=== PATIENT | female | born 1970 | race Hispanic/Latino ===

== ENCOUNTER 2021-12-02 11:54 | Emergency (ER) | payer OTHER ==
--- OUTSIDE RECORDS SUMMARY | 2021-12-02 11:59 | XMS REPORT | Continuity of Care Document ---
:1970 Author Organization [facility] t Address [address] [place] [address] Care Team Providers Name Role Phone LIAM Attending Clinician Unavailable Bill Stark Attending Clinician [phone] Rebecca Attending Clinician [phone] Vitor Attending Clinician [phone] Wilda Roland Attending Clinician [phone] DR Bouchra STEVEN Attending Clinician Unavailable DR MIKHAIL Attending Clinician Unavailable DR Jose HWANG Attending Clinician Unavailable LIAM Admitting Clinician Unavailable PARISA RUIZIOMA Admitting Clinician Unavailable DR MIKHAIL Admitting Clinician Unavailable DR Jose HWANG Admitting Clinician Unavailable Payers Payer Name Policy Type Policy Number Effective Date Expiration Date S [facility] [id number] Problems This patient has no known problems. Allergies, Adverse Reactions, Alerts Allergy Allergy Status Severity Reaction(s) Onset Inactive Treating Comm ents Source Name Type Date Date Clinician No Known DA Active [facility] Medications This patient has no known medications. Vital Signs Vital Name Observation Time Observation Value Comments Source Height 2020-10-03 21:45:00 165.1 CM Weight 2020-10-03 21:45:00 117.93 KG Height 2020-10-03 05:58:00 165.1 CM Weight 2020-10-03 05:58:00 117.93 KG Height 2020-07-17 13:15:00 165.1 CM Weight 2020-07-17 13:15:00 122.46 KG Procedures This patient has no known procedures. Encounters Start End Encounter Admission Attending Care Care Encounter Source Date/Time Date/Time Type Type Clinicians Facility Department ID 2021-11-13 2021-11-13 Outpatient LIAM [facility] [id number] [place] 05:33:00 05:33:00 [facility] 2021-11-13 2021-11-13 Outpatient Lincoln, [facility] [id number] 00:00:00 00:00:00 Suhail [id number] 2021-11-04 2021-11-04 Outpatient WATERS_S [facility] 2021 [place] 10:33:00 10:33:00 0425 [facility] 2021-11-04 2021-11-04 Outpatient WATERS_S [facility] 2021 [place] 10:33:00 10:33:00 0502 [facility] 2021-11-04 2021-11-04 Outpatient Rebecca, [facility] [id number] 00:00:00 00:00:00 Rose Marie [id number] 2021-10-08 2021-10-08 Outpatient WATERS_S [facility] 2021 [place] 12:23:00 12:23:00 0329 [facility] 2021-10-08 2021-10-08 Outpatient Adler, [facility] [id number] 00:00:00 00:00:00 Sadia [id number] 2021-10-07 2021-10-07 Outpatient WATERS_S [facility] 2021 [place] 06:48:00 06:48:00 0328 [facility] 2021-10-01 2021-10-01 Outpatient WATERS_S [facility] 2021 [place] 03:02:00 03:02:00 0322 [facility] 2021-09-12 2021-09-12 Outpatient WATERS_S [facility] 2021 [place] 03:49:00 03:49:00 0303 [facility] 2021-09-12 2021-09-12 Outpatient Adler, [facility] [id number] 00:00:00 00:00:00 Sadia [id number] 2021-08-27 2021-08-27 Outpatient WATERS_S [facility] 2021 [place] 03:35:00 03:35:00 0215 [facility] 2021-08-27 2021-08-27 Outpatient Adler, [facility] [id number] 00:00:00 00:00:00 Sadia [id number] 2021-08-19 2021-08-19 Outpatient W[facility]ERS_S [facility] 2021 [place] 10:23:00 10:23:00 0210 [facility] 2021-08-16 2021-08-16 Outpatient WATERS_S [facility] 2021 [place] 04:31:00 04:31:00 0204 [facility] 2021-08-07 2021-08-07 Outpatient WATERS_S [facility] 2021 [place] 12:25:00 12:25:00 0126 [facility] 2021-08-07 2021-08-07 Outpatient Adler, [facility] [id number] 00:00:00 00:00:00 Sadia [id number] 2021-07-22 2021-07-22 Outpatient WATERS_S [facility] 2021 [place] 10:38:00 10:38:00 0110 [facility] 2021-07-22 2021-07-22 Outpatient Adler, [facility] [id number] 00:00:00 00:00:00 Sadia [id number] 2021-07-18 2021-07-18 Outpatient [facility]ERS[facility] [id number] [place] 06:00:00 06:00:00 0106 [facility] 2021-07-18 2021-07-18 Outpatient Adler, [facility] [id number] 00:00:00 00:00:00 Sadia [id number] 2021-06-18 2021-06-18 Outpatient WATERS_S [facility] 2020 [place] 04:20:00 04:20:00 1207 [facility] 2021-06-18 2021-06-18 Outpatient Adler, [facility] [id number] 00:00:00 00:00:00 Sadia [id number] 2021-06-12 2021-06-12 Outpatient [facility]ERS_[facility] 2020 [place] 10:52:00 10:52:00 1201 [facility] 2021-05-14 2021-05-14 Outpatient WATERS_S [facility] 2020 [place] 12:27:00 12:27:00 1102 [facility] 2021-05-14 2021-05-14 Outpatient Adler, [facility] [id number] e-[id number] 00:00:00 00:00:00 Sadia [id number] 2021-05-14 2021-05-14 Outpatient Adler, [facility] [id number] 00:00:00 00:00:00 Sadia [id number] 2021-04-09 2021-04-09 Outpatient WATERS_S [facility] 2020 [place] 05:46:00 05:46:00 0928 [facility] 2021-04-09 2021-04-09 Outpatient Adler, [facility] [id number] 00:00:00 00:00:00 Sadia [id number] 2021-04-07 2021-04-07 Outpatient [facility]ERS_[facility] 2020 [place] 12:40:00 12:40:00 0926 [facility] 2021-04-07 2021-04-07 Outpatient WATERS_S [facility] 2020 [place] 12:40:00 12:40:00 0927 [facility] 2021-03-31 2021-03-31 Outpatient [facility]ERS_S [facility] 2020 [place] 06:35:00 06:35:00 0923 [facility] 2021-03-03 2021-03-03 Outpatient W[facility]ERS_S [facility] 2020 [place] 12:36:00 12:36:00 0822 [facility] 2021-02-12 2021-02-12 Outpatient WATERS_S [facility] 2020 [place] 10:40:00 10:40:00 0803 [facility] 2021-02-12 2021-02-12 Outpatient Schaubroeck [facility] [id number] 00:00:00 00:00:00 , Marcelina [id number] Wilda [id number] 2021-01-27 2021-01-27 Outpatient WATERS_S [facility] 2020 [place] 12:44:00 12:44:00 0718 [facility] 2021-01-18 2021-01-18 Outpatient WATERS_S [facility] 2020 [place] 10:11:00 10:11:00 0709 [facility] 2021-01-18 2021-01-18 Outpatient Vitor, [facility] [id number] 00:00:00 00:00:00 Sadia [id number] 2021-01-18 2021-01-18 Outpatient Adler, [facility] [id number] 00:00:00 00:00:00 Sadia [id number] 2021-01-17 2021-01-17 Outpatient [facility]ERS_[facility] 2020 [place] 10:54:00 10:54:00 0708 [facility] 2021-01-16 2021-01-16 Outpatient WATERS_S [facility] 2020 [place] 11:14:00 11:14:00 0707 [facility] 2021-01-16 2021-01-16 Outpatient Adler, [facility] [id number] 00:00:00 00:00:00 Sadia [id number] 2021-01-16 2021-01-16 Outpatient Adler, [facility] [id number] 00:00:00 00:00:00 Sadia [id number] 2021-01-16 2021-01-16 Outpatient Adler, [facility] [id number] 00:00:00 00:00:00 Sadia [id number] 2020-12-14 2020-12-14 Outpatient WATERS_S [facility] [id number] [place] 11:31:00 11:31:00 0604 [facility] 2020-12-14 2020-12-14 Outpatient Adler, [facility] [id number] 00:00:00 00:00:00 Sadia [id number] 2020-12-14 2020-12-14 Outpatient Adler, [facility] [id number] 00:00:00 00:00:00 Sadia [id number] 2020-11-26 2020-11-26 Outpatient WATERS_S [facility] [id number] [place] 02:17:00 02:17:00 0517 [facility] 2020-11-26 2020-11-26 Outpatient Adler, [facility] [id number] 00:00:00 00:00:00 Sadia [id number] 2020-10-03 2020-10-05 Outpatient E STEVEN, [facility] [id number] 23:39:00 15:42:00 POYANI [facility] 2020-10-03 2020-10-03 Emergency E ELIZONDO, [facility] [id number] 05:41:00 09:41:00 [facility] 2020-07-17 2020-07-17 Patti HWANG [facility] [id number] [facility] 12:30:00 16:55:00 [facility] Results Test Description Test Time Test Comments Results Result Comments Source BLOOD CULTURE 2020-10-08 22:33:00 Test Item Value Reference Range Interpretation Comme nts Culture Observations (test code = COB1) NO GROWTH AFTER 5 DAYS BLOOD [id number] 22:33:00 Test Item Value Reference Range Interpretation Comments Culture Observations (test NO GROWTH AFTER 5 code = COB1) DAYS URINE [id number] 09:00:00 Test Item Value Reference Range Interpretation Comments Isolate 1 (test code = ISO1) Escherichia coli A ampicillin (test code = am) ug/mL R piperacillin/tazobactam ug/mL S (test code = tzp) cefazolin (test code = cz) ug/mL S ceftazidime (test code = ug/mL S monica) ceftriaxone1 (test code = ug/mL S ctr) cefepime (test code = fep) ug/mL S aztreonam (test code = azm) ug/mL S ertapenem (test code = etp) ug/mL S meropenem (test code = mem) ug/mL S gentamicin (test code = gm) ug/mL S tobramycin (test code = tob) ug/mL S levofloxacin (test code = ug/mL S lev) nitrofurantoin (test code = ug/mL S ftn) trimethoprim/sulfamethoxazol ug/mL R e (test code = sxt) CBC WITH MANUAL DIFF *WW*2020-10-05 07:50:00 Test Item Value Reference Range Interpretation Comments WBC (test code = 3.7 10\S\3/uL 4.5-11.0 L WBC) RBC (test code = 3.91 10\S\6/uL 4.20-5.60 L RBC) HGB (test code = 12.8 g/dL 12.0-15.5 HBG) HCT (test code = 38.2 % 35.0-44.0 HCT) MCV (test code = 97.7 fL 81.0-99.0 MCV) MCH (test code = 32.7 pg 27.0-31.0 H MCH) MCHC (test code = 33.5 g/dL 32.0-36.0 MCHC) RDW (test code = 13.4 % 11.5-14.5 RDW) PLT (test code = 121 10\S\3/uL 130-400 L PLT) MPV (test code = 12.1 fL 9.4-12.4 MPV) NEUTROP # (test 2.8 10\S\3/uL 1.6-8.0 code = NE#) LYMPH # (test 0.3 10\S\3/uL 1.1-3.5 L code = LY#) MONOCYTE # (test 0.5 10\S\3/uL 0.0-1.1 code = MO#) EOSINOPH # (test 0.0 10\S\3/uL 0.0-0.7 code = EO#) BASOPHIL # (test 0.0 10\S\3/uL 0.0-0.3 code = BA#) IG # (test code = 0.04 10\S\3/uL 0.00-0.06 IG#) NRBC # (test code 0.00 10\S\3/uL 0.00-0.01 = NRBC#) NEUTROPH % (test 75.4 % 35.0-73.0 H code = NE%) LYMPH % (test 9.3 % 20.0-55.0 L code = LY%) MONO % (test code 13.1 % 2.5-10.0 H = MO%) EOSINOPH % (test 0.3 % 0.0-5.0 code = EO%) BASOPHIL % (test 0.8 % 0.0-2.0 code = BA%) IG % (test code = 1.1 % 0.0-0.8 H IG%) NRBC% (test code 0.0 % 0.0-0.2 = NRBC%) MAN DIFF (test MANUAL code = HMDIFF) DIFFERENTIAL SEG (test code = 77 % 42-75 H SEG) BAND (test code = 2 % 0-8 BAND) LYMPH (test code 11 % 20-51 L = LYMPH) ATYP LYMP (test 1 % See_Comment [Automated code = ATYL) message] The sy stem which generated this result transmitted reference range : <=5. The refere nce range was not u sed to interpret th is result as normal/abnormal . MONO (test code = 7 % 3-11 MONO) EOS (test code = 0 % 0-10 EOS) BASO (test code = 0 % 0-2 BASO) RBC MORPH (test NORMAL NORMAL code = RBCMORN) PLT EST (test DECREASED ADEQUATE A code = PLTEST) PLT MORPH (test NORMAL (1.5-3 um) NORMAL code = PLTMOR) META (test code = 2 % See_Comment H Previously reported META) as: 2 On 10/05/2020 07:5 0 By [email or web address] [Autom ated message] The sy stem which generated this result transmitted reference range : <=1. The refere nce range was not u sed to interpret th is result as normal/abnormal . T3 FREE 2020-10-05 07:26:00 Test Item Value Reference Range Interpretation Comments T3 FREE (test code 1.3 pg/mL 2.3-4.2 L TEST PERF ORMED AT:QUEST = [id number]) [facility] [id number] [place] [id number] STACY MD BASIC METABOLIC PANEL 2020-10-05 06:39:00 Test Item Value Reference Range Interpretation Comments GLUCOSE (test code 100 mg/dL 75-100 = 06D) SODIUM (test code 136 mmol/L 136-145 = 01A) POTASSIUM (test 3.2 mmol/L 3.6-5.1 L code = 01B) CHLORIDE (test 105 mmol/L 98-107 code = 04A) CO2 (test code = 24 mmol/L 22-32 02A) ANION GAP (test 10.2 mmol/L code = ANG) BUN (test code = 10 mg/dL 7-18 05D) CREATININE (test 0.9 mg/dL 0.4-1.1 code = 03E) GFR (test code = 79 See_Comment L [Automated GFR) mL/min/1.73m\S\2 message] Th e system which generated this result transmit satish reference range : >=90. The reference range was not used to interpret this result as normal/abnormal . GFR 91 See_Comment [Automated SWAZI (test mL/min/1.73m\S\2 message] The code = GFRAA) system which generated this result transmit satish reference range : >=90. The reference range was not used to interpret this result as normal/abnormal . EGFR (test code = eGFR BY EGFR) CKD-EPI CALCULATION IS NOT RECOMMENDED FOR PATIENTS UNDER 18 YEARS OF AGE. BUN/CREA (test 07-01 code = BCR) CALCIUM (test code 8.6 mg/dL 8.3-9.5 = 09D) T4 FREE *WW*2020-10-04 17:57:00 Test Item Value Reference Range Interpretation Comments T4 FREE (test code = A91) 1.30 ng/dL 0.76-1.46 THYROID PANEL/SCREEN (TSH) *WW*2020-10-04 17:48:00 Test Item Value Reference Range Interpretation Comments TSH (test code = WTSH) 12.600 uIU/mL 0.358-3.740 H SARS-CoV-2 (MOLECULAR)2020-10-03 23:53:00 Test Item Value Reference Range Interpretation Comments SARS-CoV-2 MOLECULAR NEGATIVE NEGATIVE (test code = WCOV) COVID AG (test code This test has been = COVAGC) marketed under the FDA Emergency Use Authorization (EUA) to meet challenges of the COVID-19 pandemic. The validation standards normally enforced by the FDA and the [employer] (CAP) are more stringent than those required for this test. Therefore, the result should be interpreted with caution and close attention to other clinical and epidemiological data CBC WITH [id number] 23:20:00 Test Item Value Reference Range Interpretation Comments WBC (test code = WBC) 4.7 10\S\3/uL 4.5-11.0 RBC (test code = RBC) 4.15 10\S\6/uL 4.20-5.60 L HGB (test code = HBG) 13.8 g/dL 12.0-15.5 HCT (test code = HCT) 40.8 % 35.0-44.0 MCV (test code = MCV) 98.3 fL 81.0-99.0 MCH (test code = MCH) 33.3 pg 27.0-31.0 H MCHC (test code = MCHC) 33.8 g/dL 32.0-36.0 RDW (test code = RDW) 13.2 % 11.5-14.5 PLT (test code = PLT) 150 10\S\3/uL 130-400 MPV (test code = MPV) 11.8 fL 9.4-12.4 NEUTROP # (test code = NE#) 4.0 10\S\3/uL 1.6-8.0 LYMPH # (test code = LY#) 0.3 10\S\3/uL 1.1-3.5 L MONOCYTE # (test code = 0.3 10\S\3/uL 0.0-1.1 MO#) EOSINOPH # (test code = 0.0 10\S\3/uL 0.0-0.7 EO#) BASOPHIL # (test code = 0.0 10\S\3/uL 0.0-0.3 BA#) IG # (test code = IG#) 0.08 10\S\3/uL 0.00-0.06 H NRBC # (test code = NRBC#) 0.00 10\S\3/uL 0.00-0.01 NEUTROPH % (test code = 85.4 % 35.0-73.0 H NE%) LYMPH % (test code = LY%) 6.9 % 20.0-55.0 L MONO % (test code = MO%) 5.6 % 2.5-10.0 EOSINOPH % (test code = 0.0 % 0.0-5.0 EO%) BASOPHIL % (test code = 0.4 % 0.0-2.0 BA%) IG % (test code = IG%) 1.7 % 0.0-0.8 H NRBC% (test code = NRBC%) 0.0 % 0.0-0.2 PLT EST (test code = ADEQUATE ADEQUATE PLTEST) PLT MORPH (test code = NORMAL (1.5-3 um) NORMAL PLTMOR) LACTIC [id number] 23:00:00 Test Item Value Reference Range Interpretation Comments LACTIC ACD (test code = LA) 1.5 mmol/L 0.4-2.0 URINALYSIS WITH [id number] 22:53:00 Test Item Value Reference Range Interpretation Comments COLOR (test code = COLU) YELLOW YELLOW CLARITY (test code = CLA) CLEAR CLEAR GLUCOSE UR (test code = UA GLUCOSE) NEGATIVE NEGATIVE BILI UR (test code = BILE) NEGATIVE NEGATIVE KETONES UR (test code = RACHID) NEGATIVE NEGATIVE SP GRAVITY (test code = SPGR) 1.012 1.005-1.030 PH UR (test code = PH) 6.5 4.5-8.0 PROTEIN UR (test code = PU) 1+ NEGATIVE A UROBIL UR (test code = UROQ) 1.0 EU/dL 0.2-1.0 NITRITE UR (test code = NITRITE) NEGATIVE NEGATIVE BLOOD UR (test code = UA BLOOD) TRACE NEGATIVE A LEUK ES UR (test code = LEUK) TRACE NEGATIVE A WBC UR (test code = UWBC) 4 /HPF 0-5 RBC UR (test code = URBC) 3 /HPF 0-2 H EPITH UR (test code = UEPC) FEW /LPF FEW BACTERIA UR (test code = UBACT) FEW /HPF NONE A CAST UR (test code = CAST) /LPF NONE CRYSTAL UR (test code = CRYU) / LPF NONE MUCUS UR (test code = MUC) / HPF NONE AMORPH UR (test code = FELISA) / HPF NONE TRICH UR (test code = UTRICH) /HPF NONE YEAST UR (test code = UY) /HPF NONE SPERM UR (test code = USPERM) /HPF NONE TROPONIN [id number] 22:51:00 Test Item Value Reference Range Interpretation Comments TROPONIN I (test code = A84) <0.015 ng/mL 0.000-0.045 COMPREHENSIVE METABOLIC [id number] 22:51:00 Test Item Value Reference Range Interpretation Comments GLUCOSE (test code 103 mg/dL 75-100 H = 06D) SODIUM (test code 130 mmol/L 136-145 L = 01A) POTASSIUM (test 3.5 mmol/L 3.6-5.1 L code = 01B) CHLORIDE (test 97 mmol/L 98-107 L code = 04A) CO2 (test code = 24 mmol/L 22-32 02A) ANION GAP (test 12.5 mmol/L code = ANG) BUN (test code = 15 mg/dL 7-18 05D) CREATININE (test 1.4 mg/dL 0.4-1.1 H code = 03E) GFR (test code = 42 See_Comment L [Automated GFR) mL/min/1.73m\S\2 message] Th e system which generated this result transmit satish reference range : >=90. The reference range was not used to interpret this result as normal/abnormal . GFR 49 See_Comment L [Automated SWAZI (test mL/min/1.73m\S\2 message] The code = GFRAA) system which generated this result transmit satish reference range : >=90. The reference range was not used to interpret this result as normal/abnormal . EGFR (test code = eGFR BY EGFR) CKD-EPI CALCULATION IS NOT RECOMMENDED FOR PATIENTS UNDER 18 YEARS OF AGE. BUN/CREA (test 10 12-20 L code = BCR) CALCIUM (test code 8.4 mg/dL 8.3-9.5 = 09D) BILI TOTAL (test 0.6 mg/dL 0.2-1.0 code = 11A) PROTEIN (test code 7.7 g/dL 6.4-8.2 = 07D) ALBUMIN (test code 2.8 g/dL 3.5-4.8 L = 08D) GLOBULIN (test 4.9 g/dL 1.5-3.8 H code = GLB) ALB/GLOB (test 0.6 1.0-2.6 L code = AGRR) ALK PHOS (test 95 IU/L 42-121 code = 35A) AST (test code = 34 IU/L See_Comment [Automated 30A) message] The system which generated this result transmit satish reference range : <=42. The reference range was not used to interpret this result as normal/abnormal . ALT (test code = 59 IU/L See_Comment [Automated 31A) message] The system which generated this result transmit satish reference range : <=78. The reference range was not used to interpret this result as normal/abnormal . PRO TIME AND [id number] 22:50:00 Test Item Value Reference Range Interpretation Comments PT (test code = 11.2 s 9.8-13.6 TT) INR (test code = 1.0 INR) INRH (test code = SUGGESTED INRH) THERAPEUTIC RANGE FOR INR: 2.5 - 3.5 For Patients with Prosthetic Valves or Patients with recurrent Thromboembolic Events 2.0 - 3.0 For Most Other Applications PTT (test code = 33.8 s 20.2-38.0 PTT) PTTH (test code = To monitor the PTTH) effectiveness of heparin, we offer the Anti-Xa (Heparin Assay). It can be used for either unfractionated or LMW Heparin. Order Code is ANTI-XA URINALYSIS WITH [id number] 08:44:00 Test Item Value Reference Range Interpretation Comments COLOR (test code = COLU) DK YELLOW YELLOW A CLARITY (test code = CLA) CLOUDY CLEAR A GLUCOSE UR (test code = UA GLUCOSE) NEGATIVE NEGATIVE BILI UR (test code = BILE) 1+ NEGATIVE A KETONES UR (test code = RACHID) NEGATIVE NEGATIVE SP GRAVITY (test code = SPGR) 1.018 1.005-1.030 PH UR (test code = PH) 5.5 4.5-8.0 PROTEIN UR (test code = PU) 1+ NEGATIVE A UROBIL UR (test code = UROQ) 1.0 EU/dL 0.2-1.0 NITRITE UR (test code = NITRITE) NEGATIVE NEGATIVE BLOOD UR (test code = UA BLOOD) TRACE NEGATIVE A LEUK ES UR (test code = LEUK) 2+ NEGATIVE A WBC UR (test code = UWBC) 10 /HPF 0-5 H RBC UR (test code = URBC) 2 /HPF 0-2 EPITH UR (test code = UEPC) FEW /LPF FEW BACTERIA UR (test code = UBACT) FEW /HPF NONE A CAST UR (test code = CAST) /LPF NONE CRYSTAL UR (test code = CRYU) / LPF NONE MUCUS UR (test code = MUC) / HPF NONE AMORPH UR (test code = FELISA) / HPF NONE TRICH UR (test code = UTRICH) /HPF NONE YEAST UR (test code = UY) /HPF NONE SPERM UR (test code = USPERM) /HPF NONE URINE [id number] 08:38:00 Test Item Value Reference Range Interpretation Comments PREG UR (test code = PGU) NEGATIVE NEGATIVE SARS-CoV (RAPID ANTIGEN)2020-10-03 06:55:00 Test Item Value Reference Range Interpretation Comments SARS-CoV (ANTIGEN) NEGATIVE NEGATIVE (test code = COVAG) COVID AG (test This test has been code = COVAGC) marketed under the FDA Emergency Use Authorization (EUA) to meet challenges of the COVID-19 pandemic. The validation standards normally enforced by the FDA and the [employer] (CAP) are more stringent than those required for this test. Therefore, the result should be interpreted with caution and close attention to other clinical and epidemiological data LACTIC [id number] 06:44:00 Test Item Value Reference Range Interpretation Comments LACTIC ACD (test code = LA) 2.0 mmol/L 0.4-2.0 AMYLASE AND [id number] 06:38:00 Test Item Value Reference Range Interpretation Comments AMYLASE (test code = 10A) 21 U/L 28-100 L LIPASE (test code = 60A) 46 IU/L 73-393 L COMPREHENSIVE METABOLIC [id number] 06:38:00 Test Item Value Reference Range Interpretation Comments GLUCOSE (test code 116 mg/dL 75-100 H = 06D) SODIUM (test code 130 mmol/L 136-145 L = 01A) POTASSIUM (test 3.9 mmol/L 3.6-5.1 code = 01B) CHLORIDE (test 97 mmol/L 98-107 L code = 04A) CO2 (test code = 25 mmol/L 22-32 02A) ANION GAP (test 11.9 mmol/L code = ANG) BUN (test code = 19 mg/dL 7-18 H 05D) CREATININE (test 1.7 mg/dL 0.4-1.1 H code = 03E) GFR (test code = 34 See_Comment L [Automated GFR) mL/min/1.73m\S\2 message] Th e system which generated this result transmit satish reference range : >=90. The reference range was not used to interpret this result as normal/abnormal . GFR 39 See_Comment L [Automated SWAZI (test mL/min/1.73m\S\2 message] The code = GFRAA) system which generated this result transmit satish reference range : >=90. The reference range was not used to interpret this result as normal/abnormal . EGFR (test code = eGFR BY EGFR) CKD-EPI CALCULATION IS NOT RECOMMENDED FOR PATIENTS UNDER 18 YEARS OF AGE. BUN/CREA (test 11 12-20 L code = BCR) CALCIUM (test code 9.1 mg/dL 8.3-9.5 = 09D) BILI TOTAL (test 0.9 mg/dL 0.2-1.0 code = 11A) PROTEIN (test code 8.2 g/dL 6.4-8.2 = 07D) ALBUMIN (test code 3.2 g/dL 3.5-4.8 L = 08D) GLOBULIN (test 5.0 g/dL 1.5-3.8 H code = GLB) ALB/GLOB (test 0.6 1.0-2.6 L code = AGRR) ALK PHOS (test 111 IU/L 42-121 code = 35A) AST (test code = 44 IU/L See_Comment H [Automated 30A) message] The system which generated this result transmit satish reference range : <=42. The reference range was not used to interpret this result as normal/abnormal . ALT (test code = 75 IU/L See_Comment [Automated 31A) message] The system which generated this result transmit satish reference range : <=78. The reference range was not used to interpret this result as normal/abnormal . TROPONIN [id number] 06:37:00 Test Item Value Reference Range Interpretation Comments TROPONIN I (test code = A84) <0.015 ng/mL 0.000-0.045 [id number] 06:33:00 Test Item Value Reference Range Interpretation Comments MAGNESIUM (test code = 48A) 1.9 mg/dL 1.8-2.4 PRO TIME AND [id number] 06:29:00 Test Item Value Reference Range Interpretation Comments PT (test code = 11.8 s 9.8-13.6 TT) INR (test code = 1.0 INR) INRH (test code = SUGGESTED INRH) THERAPEUTIC RANGE FOR INR: 2.5 - 3.5 For Patients with Prosthetic Valves or Patients with recurrent Thromboembolic Events 2.0 - 3.0 For Most Other Applications PTT (test code = 35.2 s 20.2-38.0 PTT) PTTH (test code = To monitor the [facility]) effectiveness of heparin, we offer the Anti-Xa (Heparin Assay). It can be used for either unfractionated or LMW Heparin. Order Code is ANTI-XA DIRECT INFLUENZA A AND B [id number] 06:27:00 Test Item Value Reference Range Interpretation Comments Direct Exam (test PRESUMPTIVE NEGATIVE FOR code = DE1) THE PRESENCE OF INFLUENZA ANTIGEN CBC (INCLUDES AUTOMATED DIFFERENTIAL)2020-10-03 06:24:00 Test Item Value Reference Range Interpretation Comments WBC (test code = WBC) 8.8 10\S\3/uL 4.5-11.0 RBC (test code = RBC) 4.52 10\S\6/uL 4.20-5.60 HGB (test code = HBG) 14.9 g/dL 12.0-15.5 HCT (test code = HCT) 44.4 % 35.0-44.0 H MCV (test code = MCV) 98.2 fL 81.0-99.0 MCH (test code = MCH) 33.0 pg 27.0-31.0 H MCHC (test code = MCHC) 33.6 g/dL 32.0-36.0 RDW (test code = RDW) 13.2 % 11.5-14.5 PLT (test code = PLT) 176 10\S\3/uL 130-400 MPV (test code = MPV) 11.7 fL 9.4-12.4 NEUTROP # (test code = NE#) 7.7 10\S\3/uL 1.6-8.0 LYMPH # (test code = LY#) 0.5 10\S\3/uL 1.1-3.5 L MONOCYTE # (test code = MO#) 0.3 10\S\3/uL 0.0-1.1 EOSINOPH # (test code = EO#) 0.1 10\S\3/uL 0.0-0.7 BASOPHIL # (test code = BA#) 0.1 10\S\3/uL 0.0-0.3 IG # (test code = IG#) 0.09 10\S\3/uL 0.00-0.06 H NRBC # (test code = NRBC#) 0.00 10\S\3/uL 0.00-0.01 NEUTROPH % (test code = NE%) 87.5 % 35.0-73.0 H LYMPH % (test code = LY%) 5.4 % 20.0-55.0 L MONO % (test code = MO%) 3.8 % 2.5-10.0 EOSINOPH % (test code = EO%) 1.6 % 0.0-5.0 BASOPHIL % (test code = BA%) 0.7 % 0.0-2.0 IG % (test code = IG%) 1.0 % 0.0-0.8 H NRBC% (test code = NRBC%) 0.0 % 0.0-0.2 MANDIFF (test code = MDIFF) NO RBC MORPH (test code = RBCMOR) NORMAL SARS-CoV (RAPID ANTIGEN)2020-07-17 14:39:00 Test Item Value Reference Range Interpretation Comments SARS-CoV (ANTIGEN) NEGATIVE NEGATIVE (test code = COVAG) COVID AG (test This test has been code = COVAGC) marketed under the FDA Emergency Use Authorization (EUA) to meet challenges of the COVID-19 pandemic. The validation standards normally enforced by the FDA and the [employer] (CAP) are more stringent than those required for this test. Therefore, the result should be interpreted with caution and close attention to other clinical and epidemiological data CBC (INCLUDES AUTOMATED DIFFERENTIAL)2020-07-17 14:23:00 Test Item Value Reference Range Interpretation Comments WBC (test code = WBC) 6.7 10\S\3/uL 4.5-11.0 RBC (test code = RBC) 5.16 10\S\6/uL 4.20-5.60 HGB (test code = HBG) 17.4 g/dL 12.0-15.5 H HCT (test code = HCT) 53.2 % 35.0-44.0 H MCV (test code = MCV) 103.1 fL 81.0-99.0 H MCH (test code = MCH) 33.7 pg 27.0-31.0 H MCHC (test code = MCHC) 32.7 g/dL 32.0-36.0 RDW (test code = RDW) 13.8 % 11.5-14.5 PLT (test code = PLT) 266 10\S\3/uL 130-400 MPV (test code = MPV) 11.7 fL 9.4-12.4 NEUTROP # (test code = NE#) 4.3 10\S\3/uL 1.6-8.0 LYMPH # (test code = LY#) 1.6 10\S\3/uL 1.1-3.5 MONOCYTE # (test code = MO#) 0.5 10\S\3/uL 0.0-1.1 EOSINOPH # (test code = EO#) 0.1 10\S\3/uL 0.0-0.7 BASOPHIL # (test code = BA#) 0.1 10\S\3/uL 0.0-0.3 IG # (test code = IG#) 0.08 10\S\3/uL 0.00-0.06 H NRBC # (test code = NRBC#) 0.00 10\S\3/uL 0.00-0.01 NEUTROPH % (test code = NE%) 63.8 % 35.0-73.0 LYMPH % (test code = LY%) 24.2 % 20.0-55.0 MONO % (test code = MO%) 6.9 % 2.5-10.0 EOSINOPH % (test code = EO%) 2.1 % 0.0-5.0 BASOPHIL % (test code = BA%) 1.8 % 0.0-2.0 IG % (test code = IG%) 1.2 % 0.0-0.8 H NRBC% (test code = NRBC%) 0.0 % 0.0-0.2 MANDIFF (test code = MDIFF) NO RBC MORPH (test code = RBCMOR) NORMAL
[2021-12-02 12:44] LABS: Urine Blood Negative (Negative); Urine Glucose Negative (Negative); Urine Protein Negative (Negative); Urine pH 5.5 (5.0-7.0)
[2021-12-02 12:55] LABS: Hematocrit 42.6 % (36.0-45.0); Lymphocytes % 13.9 % (15.3-44.8); MPV 8.3 fL (7.6-11.3)
[2021-12-02 12:57] LABS: Urine Bacteria <20 /HPF (<20); Urine RBC <5 /HPF (NONE SEEN)
[2021-12-02 13:00] LABS: Protime INR 1.05
[2021-12-02] MEDS ORDERED: NA CHLORIDE 0.9% 1,000 ML ONE (13:08)
[2021-12-02 13:28] LABS: Albumin 3.5 g/dL (3.4-5.0); Bilirubin Direct 0.2 mg/dL (0-0.2); Bilirubin Total 0.4 mg/dL (0.2-1.0); Magnesium 1.8 mg/dL (1.8-2.4); Potassium 3.9 mmol/L (3.5-5.1); Protein, Total 7.4 g/dL (6.4-8.2); Troponin High Sensitivity 11.1 pg/mL (<58.9)
--- NOTE | 2021-12-02 13:57 | RAD REPORT ---
EXAM DESCRIPTION: RAD - Chest Single View - 12/02/2021 1:20 pm CLINICAL HISTORY: syncope COMPARISON: None TECHNIQUE: AP portable chest image was obtained 12/02/2021 1:20 pm . FINDINGS: Lungs are clear. Lung parker are underinflated creating some minimal linear atelectasis at each base. Heart and vasculature are normal. No measurable pleural effusion and no pneumothorax. No acute bony abnormality seen. No acute aortic findings suspected. IMPRESSION: No acute cardiopulmonary process.
--- NOTE | 2021-12-02 15:58 | RAD REPORT ---
EXAM DESCRIPTION: CT - Head Brain Wo Cont - 12/02/2021 3:38 pm CLINICAL HISTORY: Headache, new or worsening COMPARISON: No comparisons TECHNIQUE: Axial 5 mm thick images of the head were obtained without IV contrast. All CT scans are performed using dose optimization technique as appropriate and may include automated exposure control or mA/KV adjustment according to patient size. FINDINGS: No intracranial hemorrhage, mass, edema or shift of mid-line structures. No acute infarcti on changes seen. No abnormal extra-axial fluid collections. Ventricles are normal. Mastoid air cells and visualized portions of the paranasal sinuses are clear. No acute bony findings. IMPRESSION: Negative non-contrast CT head examination.
--- NOTE | 2021-12-02 16:05 | RAD REPORT ---
EXAM DESCRIPTION: CT - Angio Aorta For Dissection - 12/02/2021 3:41 pm CLINICAL HISTORY: syncope, abdominal pain COMPARISON: Portable chest 12/02/2021 TECHNIQUE: Dynamically enhanced 3 mm thick images of the chest, abdomen, and upper pelvis were obtai samina during administration of approximately 150mL Isovue 370 IV contrast. Sagittal and coronal reconst ruction images were generated using MIP and reviewed. Exam utilizes a protocol to evaluate entire cou rse of the aorta. All CT scans are performed using dose optimization technique as appropriate and may include automated exposure control or mA/KV adjustment according to patient size. FINDINGS: Aorta is normal in diameter with no dissection or other acute aortic findings. Reconstruct ion images show no significant findings. Exam was not a dedicated pulmonary artery evaluation. There is slight motion degradation present. Pul monary emboli are not suspected. No cardiomegaly, pericardial thickening or pericardial effusion. No mass or infiltrate in the lung parenchyma. No pleural thickening, pleural effusion or pneumothorax . No abnormal mediastinal or hilar mass or lymphadenopathy seen. No chest wall mass or abnormal axillar y lymphadenopathy. Celiac, SMA and renal arteries show no suspicious findings. Solid abdominal viscera and bowel show no significant findings. During fatty infiltration of the liver. Gallbladder is absent. No biliary kennedy e dilatation. No mass or abnormal lymphadenopathy. No free air, free fluid or inflammatory stranding. No urinary bladder abnormality. Uterus and ovaries show no suspicious findings. L5-S1 degenerative disc disease present. Facet degenerative changes are present. No acute bony findin g. IMPRESSION: Negative CT scan of the aorta for acute finding. Pulmonary artery assessment is more limited but no PE are suspected. No other significant findings on chest, abdomen and upper pelvis examination. Nonacute findings detai led in the body of the report.
[2021-12-02] MEDS ORDERED: ONDANSETRON 4 MG/2 ML VIAL ONE (16:17)
--- NOTE | 2021-12-02 17:11 | ER ---
Nurse's Notes [facility] Name: Kellie Garner Age: 51 yrs Sex: Female : 1970 Arrival Date: 12/02/2021 Time: 12:01 Bed 15 Private MD: Diagnosis: Dysuria;Orthostatic hypotension;Syncope Near Presentation: 12/02 12:21 Chief complaint: Patient states: "I have been fighting a UTI. I felt fine last night I jd3 felt ok, but I fell after passing out.". Coronavirus screen: At this time, the client does not indicate any symptoms associated with coronavirus-19. Ebola Screen: No symptoms or risks identified at this time. Initial Sepsis Screen: Does the patient meet any 2 criteria? No. Patient's initial sepsis screen is negative. Does the patient have a suspected source of infection? No. Patient's initial sepsis screen is negative. Risk Assessment: Do you want to hurt yourself or someone else? Patient reports no desire to harm self or others. Onset of symptoms was November 27, 2021. 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 - Social history:: Smoking status: Patient denies any tobacco usage or history of. Screenin:59 Abuse screen: Denies threats or abuse. Nutritional screening: No deficits noted. 6 Tuberculosis screening: No symptoms or risk factors identified. Fall Risk Gait- Weak (10 pts.). Assessment: 12:58 General: Appears in no apparent distress. Behavior is calm, cooperative. Pain: 6 Complains of pain in right eye Pain currently is 5 out of 10 on a pain scale. Quality of pain is described as aching, Pain began 1 day ago. Is continuous. Neuro: Reports dizziness, since lastnight headache frontal area. 14:00 Reassessment: Patient and/or family updated on plan of care and expected duration. Pain jh6 level reassessed. Patient is alert, oriented x 3, equal unlabored respirations, skin warm/dry/pink. PT ABLE TO WALK TO BATHROOM WITHOUT DIZZINESS. Patient states feeling better. 15:30 Reassessment: Patient and/or family updated on plan of care and expected duration. Pain tw5 level reassessed. Patient is alert, oriented x 3, equal unlabored respirations, skin warm/dry/pink. states that she feeling slightly nauseated. states that she has pain to rt temporal area but hasn't changed since arrival to er. 16:30 Reassessment: Patient is alert, oriented x 3, equal unlabored respirations, skin tw5 warm/dry/pink. 16:30 General: reports that the nausea medication has helped and that she is mainly just very tw5 cold which is making her head hurt worse. pt given multiple blankets and spouse at bedside. . Pain: Complains of pain in right eye Pain currently is 4 out of 10 on a pain scale. Vital Signs: 12:24 BP 98 / 65; Pulse 59; Resp 18 S; Temp 97.5(TE); Pulse Ox 99% on R/A; Weight 120.2 kg jd3 (R); Height 5 ft. 5 in. (165.10 cm) (R); Pain 6/10; 12:50 BP 111 / 45 Supine; Pulse 54; Resp 16; Pulse Ox 100% ; jh6 12:52 BP 84 / 60 Standing; Pulse 78; Resp 16; Temp 100; jh6 13:45 BP 119 / 58; Pulse 57; Resp 16; Pulse Ox 100% ; Pain 2/10; jh6 15:00 BP 149 / 77; Pulse 58; Resp 16; Pulse Ox 100% ; Pain 0/10; jh6 12:24 Body Mass Index 44.10 (120.20 kg, 165.10 cm) jd3 ED Course: 12:01 Patient arrived in ED. am2 12:13 Roscoe Cortes PA is PHCP. cp 12:13 Jimenez Cobb DO is Attending Physician. cp 12:22 Triage completed. jd3 12:25 Arm band placed on. jd3 12:28 Mindy Cross, RN is Primary Nurse. jh6 12:59 Bed in low position. Call light in reach. Side rails up X 1. Adult w/ patient. jh6 12:59 Inserted saline lock: 20 gauge in right antecubital area, using aseptic technique. jh6 Blood collected. 13:22 XRAY Chest (1 view) In Process Unspecified. EDMS 15:39 CT Head Brain wo Cont In Process Unspecified. EDMS 15:43 CT Aorta for Dissection In Process Unspecified. EDMS 17:10 Blas Harmon MD is Referral Physician. cp 17:35 IV discontinued, intact, bleeding controlled, No redness/swelling at site. Pressure tw5 dressing applied. 17:35 No provider procedures requiring assistance completed. tw5 Administered Medications: 13:12 Drug: NS 0.9% 1000 ml Route: IV; Rate: 1000 bolus; Site: right antecubital; jh6 16:17 Drug: Zofran (Ondansetron) 4 mg Route: IVP; Site: right antecubital; tw5 17:15 Follow up: Response: Nausea is decreased tw5 Medication: 17:35 VIS not applicable for this client. tw5 Outcome: 17:11 Discharge ordered by MD. cp 17:34 Discharged to home ambulatory. tw5 17:34 Condition: improved 17:34 Discharge instructions given to patient, family, Instructed on discharge instructions, Demonstrated understanding of instructions, medications, Prescriptions given X 1. 17:36 Patient left the ED. tw5 Signatures: Dispatcher [employer] EDMA Roscoe Cortes PA PA cp Larisa Nash 2 Ar Fish RN RN Jennifer St tw5 Mindy Cross, RN RN jh6
--- NOTE | 2021-12-02 17:11 | EDPHYS ---
Physician Documentation [facility] Name: Kellie Garner Age: 51 yrs Sex: Female : 1970 Arrival Date: 12/02/2021 Time: 12:01 Bed 15 Private MD: ED Physician Jimenez Cobb HPI: 12/02 12:40 This 51 yrs old Female presents to ER via Ambulatory with complaints of cp General Weakness, Syncope, Urinary Problem. 12:40 The patient's problem is reported as syncope, weakness, that is generalized. Onset: The cp symptoms/episode began/occurred yesterday. Duration: The episode is continuous. Associated signs and symptoms: Pertinent positives: headache, lightheadedness, burning with urination, Pertinent negatives: abdominal pain, chest pain, palpitations, seizure, shortness of breath. Patient's baseline: Neuro: alert and fully oriented, Motor: no deficits, Ambulation: walks without assistance, Speech: normal. Patient reports history of frequent UTI and is currently having pain with urination. Patient reports last treatment for UTI was about 1 month ago. Patient presents with headache, general weakness and reports syncopal episode while sitting on toilet yesterday causing her to fall and hit her head. 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 - Social history:: Smoking status: Patient denies any tobacco usage or history of. ROS: 12:45 Constitutional: Negative for body aches, chills, fever, poor PO intake. cp 12:45 Eyes: Negative for injury, pain, redness, and discharge. cp 12:45 ENT: Negative for drainage from ear(s), ear pain, sore throat, difficulty swallowing, difficulty handling secretions. 12:45 Cardiovascular: Negative for chest pain, edema, palpitations. 12:45 Respiratory: Negative for cough, shortness of breath, wheezing. 12:45 Abdomen/GI: Negative for abdominal pain, nausea, vomiting, and diarrhea. 12:45 Back: Negative for pain at rest, pain with movement. 12:45 : Positive for burning with urination, Negative for hematuria. 12:45 Neuro: Positive for headache, syncope, weakness, Negative for altered mental status, speech changes. 12:45 All other systems are negative. Exam: 12:50 Constitutional: The patient appears in no acute distress, alert, awake, cp non-diaphoretic, non-toxic, well developed, well nourished, obese. 12:50 Head/Face: Normocephalic, atraumatic. cp 12:50 Eyes: Periorbital structures: appear normal, Conjunctiva: normal, no exudate, no injection, Sclera: no appreciated abnormality, Lids and lashes: appear normal, bilaterally. 12:50 ENT: External ear(s): are unremarkable, Ear canal(s): are normal, clear, TM's: dullness, bilaterally, Nose: is normal, Mouth: Lips: moist, Oral mucosa: pink and intact, moist, Posterior pharynx: Airway: no evidence of obstruction, patent. 12:50 Neck: C-spine: vertebral tenderness, is not appreciated, crepitus, is not appreciated, ROM/movement: is normal, is supple, without pain, no range of motions limitations, no meningismus. 12:50 Chest/axilla: Inspection: normal, Palpation: is normal, no crepitus, no tenderness. 12:50 Cardiovascular: Rate: bradycardic, Rhythm: regular, Edema: is not appreciated, JVD: is not appreciated. 12:50 Respiratory: the patient does not display signs of respiratory distress, Respirations: normal, no use of accessory muscles, no retractions, labored breathing, is not present, Breath sounds: are clear throughout, no decreased breath sounds, no stridor, no wheezing. 12:50 Abdomen/GI: Inspection: abdomen appears normal, Bowel sounds: active, all quadrants, Palpation: abdomen is soft and non-tender, in all quadrants. 12:50 Back: pain, is absent, ROM is normal. 12:50 Skin: cellulitis, is not appreciated, no rash present. 12:50 Neuro: Orientation: to person, place \T\ time. Mentation: is normal, Cerebellar function: Romberg testing is negative, Motor: moves all fours, strength is normal, Sensation: is normal. 13:11 ECG was reviewed by the Attending Physician. cp 16:15 Radiologist reports: no acute findings cp Vital Signs: 12:24 BP 98 / 65; Pulse 59; Resp 18 S; Temp 97.5(TE); Pulse Ox 99% on R/A; Weight 120.2 kg jd3 (R); Height 5 ft. 5 in. (165.10 cm) (R); Pain 6/10; 12:50 BP 111 / 45 Supine; Pulse 54; Resp 16; Pulse Ox 100% ; jh6 12:52 BP 84 / 60 Standing; Pulse 78; Resp 16; Temp 100; jh6 13:45 BP 119 / 58; Pulse 57; Resp 16; Pulse Ox 100% ; Pain 2/10; jh6 15:00 BP 149 / 77; Pulse 58; Resp 16; Pulse Ox 100% ; Pain 0/10; jh6 12:24 Body Mass Index 44.10 (120.20 kg, 165.10 cm) jd3 MDM: 12:31 Patient medically screened. cp 17:10 Data reviewed: vital signs, nurses notes, lab test result(s), EKG, radiologic studies, cp CT scan, plain films. 17:10 Test interpretation: by ED physician or midlevel provider: ECG, plain radiologic cp studies. Counseling: I had a detailed discussion with the patient and/or guardian regarding: the historical points, exam findings, and any diagnostic results supporting the discharge/admit diagnosis, lab results, radiology results, the need for outpatient follow up, a family practitioner, to return to the emergency department if symptoms worsen or persist or if there are any questions or concerns that arise at home. Response to treatment: the patient's symptoms have markedly improved after treatment, VSS. Orthostatics positive and patient markedly improved after fluid bolus. Patient reports stopping blood pressure medication 2 days ago and will have patient continue to withhold BP med and f/u with pcp. 12/02 12:38 Order name: Urine Microscopic Only; Complete Time: 12:59 cp 12/02 13:00 Interpretation: Reviewed. 12/02 12:38 Order name: Basic Metabolic Panel; Complete Time: 13:38 cp 12/02 13:38 Interpretation: Normal except: NA 130; CL 94; GFR 75. cp 12/02 12:38 Order name: CBC with Diff; Complete Time: 12:59 cp 12/02 12:59 Interpretation: Normal except: ZEESHAN% 75.8; LYM% 13.9. cp 12/02 12:38 Order name: LFT's; Complete Time: 13:38 cp 12/02 13:38 Interpretation: Normal except: AST 47; ALT 102; GLOB 3.9; A/G 0.9. cp 12/02 12:38 Order name: Magnesium; Complete Time: 13:38 cp 12/02 12:38 Order name: PT-INR; Complete Time: 13:38 cp 12/02 12:38 Order name: Troponin HS; Complete Time: 13:38 cp 12/02 12:38 Order name: XRAY Chest (1 view); Complete Time: 14:00 cp 12/02 12:44 Order name: Urine Dipstick-Ancillary; Complete Time: 12:59 EDMS 12/02 13:00 Interpretation: Reviewed. 12/02 14:03 Order name: LAB Add On 12/02 14:19 Order name: DD; Complete Time: 16:11 bd 12/02 14:53 Order name: CT Head Brain wo Cont; Complete Time: 16:11 cp 12/02 16:11 Interpretation: Report reviewed. 12/02 14:53 Order name: CT Aorta for Dissection; Complete Time: 16:11 cp 12/02 16:12 Interpretation: Report reviewed. 12/02 12:32 Order name: Orthostatics; Complete Time: 14:22 cp 12/02 12:38 Order name: Urine Dipstick-Ancillary (obtain specimen); Complete Time: 14:22 cp 12/02 12:38 Order name: EKG; Complete Time: 12:39 cp 12/02 12:38 Order name: Cardiac monitoring; Complete Time: 13:12 cp 12/02 12:38 Order name: EKG - Nurse/Tech; Complete Time: 13:12 cp 12/02 12:38 Order name: IV Saline Lock; Complete Time: 12:57 cp 12/02 12:38 Order name: Labs collected and sent; Complete Time: 12:57 cp 12/02 12:38 Order name: O2 Per Protocol; Complete Time: 12:57 cp 12/02 12:38 Order name: O2 Sat Monitoring; Complete Time: 12:57 cp EC:11 Rate is 58 beats/min. Rhythm is regular. [place] interval is normal. QRS interval is normal. cp QT interval is normal. T waves are Inverted in lead aVR. Interpreted by me. Reviewed by me. Administered Medications: 13:12 Drug: NS 0.9% 1000 ml Route: IV; Rate: 1000 bolus; Site: right antecubital; jh6 16:17 Drug: Zofran (Ondansetron) 4 mg Route: IVP; Site: right antecubital; tw5 17:15 Follow up: Response: Nausea is decreased tw5 Disposition: 18:23 Co-signature as Attending Physician, Jimenez Cobb DO I was immediately available on-site ms3 in the Emergency Department for consultation in the care of the patient.. Disposition Summary: 12/02/21 17:11 Discharge Ordered Location: Home cp Problem: new cp Symptoms: have improved cp Condition: Stable cp Diagnosis - Dysuria cp - Orthostatic hypotension cp - Syncope Near cp Followup: cp - With: Blas Harmon MD - When: 2 - 3 days - Reason: dysuria Followup: cp - With: Private Physician - When: 2 - 3 days - Reason: orthostatic hypotension Discharge Instructions: - Discharge Summary Sheet cp - Dysuria cp - Orthostatic Hypotension cp - Syncope cp Forms: - Medication Reconciliation Form cp - Thank You Letter cp - Antibiotic Education cp - Prescription Opioid Use cp Prescriptions: - Zofran 4 mg Oral Tablet - take 1 tablet by ORAL route every 12 hours As needed; 20 tablet; Refills: 0, cp Product Selection Permitted Signatures: Dispatcher [employer] EDMS Roscoe Cortes PA PA cp Ar Fish, RN RN jd3 Jimenez Cobb DO DO ms3 Jennifer Banks tw5 Mindy Cross RN RN jh6 Corrections: (The following items were deleted from the chart) 14:06 14:01 Head Brain Wo Cont+CT.RAD.BRZ ordered. EDMS EDMS 15:08 12:38 Urine Test ordered. [facility]6
[2021-12-02 18:02] VITALS: O2SAT 100
[2021-12-02 18:06] VITALS: TEMP 100
[2021-12-02 18:10] VITALS: BP 149/77
--- NOTE | 2021-12-03 09:11 | EKG ---
Test Date: 2021-12-02 Test Time: 13:05:49 Jacker Feeder: SAGAR MEASUREMENT RESULTS: Intervals: Rate: 58 WI: 138 QRSD: 72 QT: 446 QTc: 437 [place]: P: 72 WI: 138 QRS: 28 T: 29 INTERPRETIVE STATEMENTS: Sinus bradycardia Otherwise normal ECG No previous ECG available for comparison Electronically Signed On 12-03-21 09:08:20 CDT by Brian Cid
== END 2021-12-02 17:36 | disposition home or self-care (01) ==
LOC: ER 11:54
DX: I95.1 Orthostatic hypotension (principal); R30.0 Dysuria; R51.9 Headache, unspecified; W18.11XA Fall from or off toilet without subsequent striking against object, initial encounter
CPT/HCPCS: 93005; 85025; 80048; 36415; 83735; 85610; 85379; 80076; 84484; 70450; 71275; 74175; 71045; 96374; 99284; Q9967; J7030; J2405; 81003; 81015